=== PATIENT | female | born 1975 | race Caucasian/White ===

== ENCOUNTER → 2018-08-22 | Outpatient (CLI) | payer BC ==
[~2018-08-22] MED LIST: ANTARA130 MG PO; ANTERA; ATENOLOL25 MG PO; CEFEPIME 11 GM/50 ML IV; CUBICIN500 MG/VIA IV; CYMBALTA60 MG PO; DIFLUCAN150 MG PO; FISH OIL 1,0001 EAC1 PO; FLAGYL250 MG PO; HYDROMORPHO2 MG/1 M2 IV; HYDROMORPHONE HC4 MG PO; MEROPENEM500 MG IV; METOPROLOL SUCC50 MG PO; NYSTATIN1 EAC1 PO; OCTREOTIDE100 MCG/2 SC; PROMETHAZI25 MG/1 M2 IV; PROMETHAZINE HC25 M1 PO; PROTONIX40 MG/ML IV; PROTONIX40 MG/ML PO; REGLAN5 MG PO; SENNA S TABLET1 EACH PO; ST. JOHN'S WOR300 M1 PO; TEMAZEPAM30 MG PO; TPN IV; TRAMADOL HCL50 MG PO; TYGACIL50 MG IV; ULTRAM 50MG50 MG PO; Z.0.ATENOLOL25 MG PO; Z.0.CYMBALTA30 MG PO; ZOFRAN4 MG/5 ML IV; ZYVOX600 MG/300 IV; [UNRECOGNIZED DRUG - OTHER]
== END ==
LOC: RAD 15:12
PROVIDERS: ATTEND Family Medicine
DX: M79.89 Other specified soft tissue disorders (principal)
CPT/HCPCS: 93971

== ENCOUNTER 2018-11-30 14:25 | Emergency (ER) | payer BC ==
[~2018-11-30] VITALS: Ht 162.6 cm; Wt 138.8 kg
[2018-11-30] MEDS ORDERED: SODIUM CHLORIDE 0.9% 1000ML 1,000 ML IV STA (14:46)
[2018-11-30 15:16] LABS: BASOPHILS % 0.2 % (0.0-1.0); EOSINOPHILS # (AUTO) 0.1 (0.0-0.4); EOSINOPHILS % 1.7 % (0.0-6.0); HEMOGLOBIN 12.5 g/dL (12.0-16.0); LYMPHOCYTES # (AUTO) 2.1 (1.0-3.2); LYMPHOCYTES % 39.6 % (18.0-39.1); MEAN CORPUSCULAR HEMOGLOBIN 24.1 pg (28-32); MEAN CORPUSCULAR HGB CONC 32.1 g/dL (31-35); MEAN CORPUSCULAR VOLUME 75.3 fL (81-99); MONOCYTES # (AUTO) 0.4 (0.2-0.8); MONOCYTES % 7.2 % (4.4-11.3); NEUTROPHILS # (AUTO) 2.7 (2.1-6.9); NEUTROPHILS % 50.7 % (38.7-80.0); PLATELET COUNT 269 x10e3/uL (140-360); RED BLOOD COUNT 5.18 x10e6/uL (3.6-5.1); RED CELL DISTRIBUTION WIDTH 16.9 % (11.7-14.4)
[2018-11-30 15:20] LABS: CLARITY,URINE CLEAR (CLEAR); COLOR,URINE YELLOW (YELLOW); KETONES,URINE NEGATIVE (NEGATIVE); LEUKOCYTE ESTERASE ,URINE NEGATIVE (NEGATIVE); NITRITE,URINE NEGATIVE (NEGATIVE); PROTEIN,URINE DIPSTICK NEGATIVE (NEGATIVE)
[2018-11-30 15:21] LABS: BILIRUBIN,URINE NEGATIVE (NEGATIVE); PREGNANCY TEST, URINE NEGATIVE (NEGATIVE); URINE UROBILINOGEN 0.2 mg/dL (0.2 - 1)
[2018-11-30 15:30] LABS: BACTERIA,URINE RARE /HPF; EPITHELIAL CELLS,URINE FEW /LPF
[2018-11-30 15:31] LABS: ALBUMIN 3.8 g/dL (3.5-5.0); ALBUMIN/GLOBULIN RATIO 0.9 (0.8-2.0); ANION GAP 12.9 mmol/L (8-16); CALCIUM 9.4 mg/dL (8.4-10.2); CREATININE, SERUM 1.03 mg/dL (0.57-1.11); POTASSIUM 3.9 mmol/L (3.5-5.1)
[2018-11-30] MEDS: SODIUM CHLORIDE 0.9% 1000ML 1,000 ML IV SCH ×2 (15:52→16:25)
[2018-11-30] MEDS ORDERED: INSULIN REGULAR, HUMAN 100 UNIT/1 ML 3ML VIAL IV ONE (16:00)
[2018-11-30] MEDS ORDERED: ONDANSETRON HCL INJ 2 MG/ML VIAL IV STA (17:11)
[2018-11-30] MEDS ORDERED: KETOROLAC TROMETHAMINE 30 MG/ML VIAL IV STA (17:11)
[2018-11-30 17:52] VITALS: BP 115/47
== END 2018-11-30 17:57 | disposition home or self-care (01) ==
LOC: ER 14:25
DX: E11.65 Type 2 diabetes mellitus with hyperglycemia (principal)
CPT/HCPCS: 36415; 80053; 81001; 81025; 82948; 83690; 85025; 87086; 99284; J1817; J1885; J2405; J7030

== ENCOUNTER 2021-10-15 08:09 | Emergency (ER) | payer BC, OTHER ==
[~2021-10-15] VITALS: Ht 162.6 cm; Wt 249.5 kg
[2021-10-15] MEDS ORDERED: TETANUS/DIPHTHERIA TOX ADULT 0.5 ML SYR IM ONE (08:30)
[2021-10-15] MEDS ORDERED: IBUPROFEN 400 MG TAB PO ONE (08:30)
[2021-10-15] MEDS ORDERED: ACETAMINOPHEN/CODEINE 300MG - 30MG TAB PO ONE (09:45)
[2021-10-15 10:35] VITALS: BP 150/82
== END 2021-10-15 10:39 | disposition home or self-care (01) ==
LOC: ER 08:11
DX: S52.502A Unspecified fracture of the lower end of left radius, initial encounter for closed fracture (principal); W01.0XXA Fall on same level from slipping, tripping and stumbling without subsequent striking against object, initial encounter; Y93.01 Activity, walking, marching and hiking; Y92.008 Other place in unspecified non-institutional (private) residence as the place of occurrence of the external cause; I10 Essential (primary) hypertension; E11.9 Type 2 diabetes mellitus without complications; G47.30 Sleep apnea, unspecified; E66.01 Morbid (severe) obesity due to excess calories
CPT/HCPCS: 71045; 90714; 99284